=== PATIENT | male | born 1960 | race Caucasian/White ===

== ENCOUNTER → 2020-09-19 | Outpatient (CLI) | payer OTHER ==
[~2020-09-19] MED LIST: ALLOPURINOL 10100 M1; BAYER CHEWABLE81 MG PO; CELEXA40 MG PO; LISINOPRIL30 MG PO
== END ==
LOC: CAT 10:10
PROVIDERS: ATTEND Neuromusculoskeletal Medicine & OMM
DX: Z13.6 Encounter for screening for cardiovascular disorders (principal); I25.10 Atherosclerotic heart disease of native coronary artery without angina pectoris; E78.00 Pure hypercholesterolemia, unspecified

== ENCOUNTER → 2020-10-24 | Outpatient (CLI) | payer BC, OTHER | LOC: SJCVCIMAG 11:21 | PROVIDERS: ATTEND Internal Medicine | DX: I07.1 Rheumatic tricuspid insufficiency (principal); I11.9 Hypertensive heart disease without heart failure; R93.1 Abnormal findings on diagnostic imaging of heart and coronary circulation; I45.10 Unspecified right bundle-branch block ==